=== PATIENT | female | born 1950 | race Caucasian/White ===

== ENCOUNTER 2021-08-17 11:01 | Inpatient (IN) | payer MEDICARE ==
[2021-08-17 11:37] LABS: #Monocytes 0.3 10x3/uL (0.0-1.1); #Neutrophils 2.3 10x3/uL (1.5-8.4); %Basophils 0.3 % (0.0-2.0); %Lymphocytes 24.5 % (18.0-47.0); %Monocytes 8.4 % (0.0-10.0); %Neutrophils 66.5 % (40.0-75.0); Hemoglobin 14.6 g/dL (12.0-15.5); Mean Corpuscular Hemoglobin 34.5 pg (27.0-33.0); Mean Corpuscular Volume 98.6 fl (81.6-98.3); Mean Platelet Volume 9.7 fl (7.4-10.4); Platelet Count 161 10x3/uL (150-450); RBC Distribution Width 11.8 % (11.5-14.5); Red Blood Cell (RBC) Count 4.23 10x6/uL (3.90-5.03); White Blood Cell (WBC) Count 3.5 10x3/uL (3.5-10.5)
[2021-08-17 11:54] LABS: ALT (SGPT) 14 U/L (8-55); AST (SGOT) 16 U/L (5-34); Albumin 3.9 g/dL (3.4-4.8); Alkaline Phosphatase 81 U/L (40-110); Anion Gap 13 mmol/L (10-20); BUN (Urea Nitrogen) 9 mg/dL (9.8-20.1); Bilirubin, Total 0.5 mg/dL (0.2-1.2); Calc. Creatinine Clearance 0 mL/min (70-130); Calcium 8.7 mg/dL (7.8-10.44); Carbon Dioxide 27 mmol/L (23-31); Chloride 101 mmol/L (98-107); Globulin 2.8 g/dL (2.4-3.5); Glucose 204 mg/dL (83-110); Potassium 3.7 mmol/L (3.5-5.1); Protein, Total 6.7 g/dL (5.8-8.1); Sodium 137 mmol/L (136-145)
[2021-08-17 13:49] LABS: Bilirubin Neg (Negative); Blood, Urine 10 (Negative); Clarity Clear (Clear); Glucose, Urine (Dipstick) 50 mg/dL (Negative); Ketone, Urine 15 mg/dL (Negative); Leukocyte 500 (Negative); Nitrite Negative (Negative); Protein, Urine (Dipstick) 15 mg/dl (Neg-Trace); Urobilinogen Normal mg/dL (Less than 2)
[2021-08-17 13:55] LABS: RBC/HPF 0-3 HPF (0-3); Renal Epithelial 0-3 HPF (None Seen); Squamous Epithelial 0-3 HPF (0-3)
[2021-08-17 13:56] LABS: Bacteria/HPF Rare-Few HPF (None Seen); Mucous/LPF Few LPF (<2+); Transitional Epithelial 0-3 HPF (None Seen)
[2021-08-17 14:20] LABS: SARS-CoV-2 NAA Rapid Test DETECTED (NotDetected)
[2021-08-17] MEDS ORDERED: Acetaminophen 650 MG Suppository PR PRN (16:23)
[2021-08-17] MEDS ORDERED: Ondansetron ODT 4 MG TAB PO PRN (16:23)
[2021-08-17] MEDS ORDERED: Acetaminophen 325 MG TAB PO PRN (16:23)
[2021-08-17] MEDS ORDERED: Ondansetron PF 4 MG/2 ML Vial IVP PRN (16:23)
[2021-08-17 16:48] LABS: Troponin I Less than 0.010 ng/mL (< 0.028)
[2021-08-17] MEDS ORDERED: Dextrose 50% Abboject 50 ML SYRINGE SLOW IVP PRN (17:18)
[2021-08-17] MEDS ORDERED: Dextrose 5% in Water 1,000 ML IV PRN (17:18)
[2021-08-17 20:38] VITALS: BMI 29.2
[2021-08-17] MEDS: Sodium Chloride 0.9% 1,000 ML IV SCH (20:57)
[2021-08-17 23:04] LABS: Troponin I Less than 0.010 ng/mL (< 0.028)
[2021-08-18 04:37] LABS: Hemoglobin 13.7 g/dL (12.0-15.5); Mean Corpuscular HGB CONC 35.1 g/dL (32.0-36.0); Mean Corpuscular Hemoglobin 34.4 pg (27.0-33.0); Mean Platelet Volume 9.8 fl (7.4-10.4); Platelet Count 155 10x3/uL (150-450); RBC Distribution Width 11.7 % (11.5-14.5); Red Blood Cell (RBC) Count 3.98 10x6/uL (3.90-5.03); White Blood Cell (WBC) Count 3.1 10x3/uL (3.5-10.5)
[2021-08-18 04:52] LABS: Anion Gap 10 mmol/L (10-20); BUN (Urea Nitrogen) 7 mg/dL (9.8-20.1); Calc. Creatinine Clearance 84 mL/min (70-130); Calcium 8.1 mg/dL (7.8-10.44); Carbon Dioxide 29 mmol/L (23-31); Chloride 105 mmol/L (98-107); Glucose 124 mg/dL (83-110); Magnesium 1.8 mg/dL (1.6-2.6); Potassium 3.2 mmol/L (3.5-5.1); Sodium 141 mmol/L (136-145)
[2021-08-18] MEDS: Sodium Chloride 0.9% 1,000 ML IV SCH ×3 (05:46→20:29)
[2021-08-18 05:47] LABS: MDiff Complete? YES
[2021-08-18 05:51] LABS: Band 2 % (5-11); Lymphocytes 56 % (21-51); Monocytes 6 % (0-10); Neutrophil 23 % (42-75); Reactive Lymphocytes 13 % (0-10)
[2021-08-18 05:52] LABS: Platelet Morphology Comment Appears Adequate
[2021-08-18 05:53] LABS: Reflex for Review?? YES
[2021-08-18 05:54] LABS: RBC Morphology Normal
[2021-08-18] MEDS ORDERED: Potassium Chloride 20 MEQ TAB PO SCH (08:15)
[2021-08-18] MEDS: Glimepiride 2 MG TAB PO SCH (09:40)
[2021-08-18] MEDS: Atorvastatin Calcium 20 MG TAB PO SCH (09:40)
[2021-08-18] MEDS: Aspirin Chewable 81 MG TAB PO SCH (09:40)
[2021-08-18] MEDS: Lisinopril 10 MG TAB PO SCH (09:40)
[2021-08-18] MEDS: Ascorbic Acid 500 mg Chewable Tablet PO SCH (09:40)
[2021-08-19 04:28] LABS: Anion Gap 11 mmol/L (10-20); BUN (Urea Nitrogen) 7 mg/dL (9.8-20.1); Calc. Creatinine Clearance 85 mL/min (70-130); Calcium 8.1 mg/dL (7.8-10.44); Carbon Dioxide 26 mmol/L (23-31); Chloride 107 mmol/L (98-107); Glucose 138 mg/dL (83-110); Potassium 3.5 mmol/L (3.5-5.1); Sodium 140 mmol/L (136-145)
[2021-08-19 04:33] LABS: Hemoglobin 13.1 g/dL (12.0-15.5); Mean Corpuscular HGB CONC 34.6 g/dL (32.0-36.0); Mean Corpuscular Hemoglobin 34.2 pg (27.0-33.0); Platelet Count 149 10x3/uL (150-450); RBC Distribution Width 11.6 % (11.5-14.5); Red Blood Cell (RBC) Count 3.83 10x6/uL (3.90-5.03); White Blood Cell (WBC) Count 3.7 10x3/uL (3.5-10.5)
[2021-08-19 06:10] LABS: Band 5 % (5-11); Eosinophils 1 % (0-10); Lymphocytes 68 % (21-51); Monocytes 1 % (0-10); Neutrophil 19 % (42-75); Platelet Morphology Comment Appears Adequate; Reactive Lymphocytes 6 % (0-10)
[2021-08-19 07:01] LABS: MDiff Complete? YES; Manual Diff?? YES
[2021-08-19] MEDS: Lisinopril 10 MG TAB PO SCH (10:21)
[2021-08-19] MEDS: Atorvastatin Calcium 20 MG TAB PO SCH (10:21)
[2021-08-19] MEDS: Sodium Chloride 0.9% 1,000 ML IV SCH (10:22)
[2021-08-19] MEDS: Ascorbic Acid 500 mg Chewable Tablet PO SCH (10:22)
[2021-08-19] MEDS: Aspirin Chewable 81 MG TAB PO SCH (10:22)
[2021-08-19] MEDS: Glimepiride 2 MG TAB PO SCH (10:22)
[2021-08-19] MEDS ORDERED: Potassium Chloride 20 MEQ TAB PO SCH (11:00)
[2021-08-19] MEDS ORDERED: Magnesium 2 GM/50 ML 2 GM in Premix Bag 1 BAG IVPB SCH (11:00)
[2021-08-19] MEDS ORDERED: Potassium Chloride 20 MEQ TAB ONE (12:00)
[2021-08-19] MEDS ORDERED: Magnesium 2 GM/50 ML BAG (IN WATER) ONE (12:00)
[2021-08-19 17:38] VITALS: BP 130/76; TEMP 98.5
== END 2021-08-19 16:34 | disposition home or self-care (01) | DRG 312 ==
LOC: CSHERS 11:01 → OBSVTOIN 16:07 → CSHTELE 16:07 → INTOOBSV 16:07 → UNDOADMIN 20:10 → CSHTELE 20:10 → OBSVTOIN 08-19 13:00
PROVIDERS: ADMIT Internal Medicine; ATTEND Hospitalist
DX: I95.1 Orthostatic hypotension (principal); U07.1 COVID-19; S06.9X9A Unspecified intracranial injury with loss of consciousness of unspecified duration, initial encounter; I10 Essential (primary) hypertension; E78.5 Hyperlipidemia, unspecified; E11.9 Type 2 diabetes mellitus without complications; R19.7 Diarrhea, unspecified; I44.7 Left bundle-branch block, unspecified; W19.XXXA Unspecified fall, initial encounter; E03.9 Hypothyroidism, unspecified; I25.10 Atherosclerotic heart disease of native coronary artery without angina pectoris; Z79.82 Long term (current) use of aspirin; Z79.899 Other long term (current) drug therapy; Z90.49 Acquired absence of other specified parts of digestive tract; Z88.5 Allergy status to narcotic agent; Y92.009 Unspecified place in unspecified non-institutional (private) residence as the place of occurrence of the external cause; Z90.710 Acquired absence of both cervix and uterus
CPT/HCPCS: 36415; 36416; 70450; 71045; 72125; 80048; 80053; 81003; 81015; 83735; 84443; 84484; 85025; 85060; 93005; 93306; 96374; G0378; J3475; J7050; U0002